=== PATIENT | female | born 1990 | race American Indian/Alaskan Native ===

== ENCOUNTER 2018-12-06 13:12 | Outpatient (CLI) | payer OTHER ==
[2018-12-06] MEDS ORDERED: LACTATED RINGERS 1,000 ML IV ONE (15:19)
[2018-12-06] MEDS ORDERED: TYLENOL PO NR (15:19)
[2018-12-06 15:29] LABS: Bacteria,Urine 2+ /HPF (Negative); Bilirubin,Urine NEG (Negative); Blood,Urine NEG (Negative); Color,Urine Straw (Yellow); Protein,Urine <15 mg/dL mg/dL (Negative); Urobilinogen,Urine < 2.0 mg/dL (<2.0)
[2018-12-06 15:54] VITALS: BP 122/75
== END 2018-12-06 17:25 | disposition home or self-care (01) ==
LOC: TRG 13:12
PROVIDERS: ATTEND Obstetrics & Gynecology
DX: O47.03 False labor before 37 completed weeks of gestation, third trimester (principal); Z3A.34 34 weeks gestation of pregnancy
CPT/HCPCS: 59025; 81001

== ENCOUNTER 2018-12-20 17:38 | Inpatient (IN) | payer OTHER ==
[2018-12-20 19:37] LABS: Bacteria,Urine 2+ /HPF (Negative); Bilirubin,Urine NEG (Negative); Blood,Urine NEG (Negative); Color,Urine Yellow (Yellow); Mucus,Urine FEW /HPF; Protein,Urine <15 mg/dL mg/dL (Negative); Urobilinogen,Urine < 2.0 mg/dL (<2.0)
[2018-12-20] MEDS ORDERED: LACTATED RINGERS 1,000 ML IV ONE (20:17)
[2018-12-20] MEDS ORDERED: BRETHINE SUB-Q SCH (22:00)
--- NOTE | 2018-12-20 22:03 | Event Note ---
Date: 12/20/18 Late entry 2030: DWP round ligament pain and interventions to help alleviate symptoms. Per Dr. Harley, will write for pt to be out of work until f/u OB appt next Tuesday. SVE 1//OOP. DWP plan for US-BPP and CHAPO. Will start IV for LR bolus d/t occasional contractions/irritability. Pt reports feeling occasional mild contractions, not painful. Will continue to monitor at this time.
--- NOTE | 2018-12-20 23:00 | History and Physical Report ---
History of Present Illness Date of examination: 12/20/18 Date of admission: 12/20/2018 Chief complaint: low abdominal pain History of present illness: Menstrual History Regularity: regular Menses every: 28 days Duration: 4 LMP: 04/05/2018 LMP character: normal test type: urine test Date: 05/11/2018 BC at conception: none Planned ? no EDC Calculations LMP: 01/10/2019 EDC Confirmation: 01/10/2019 Gestational Age: 9 6/7 weeks Past History : 1 Term Births: 0 Premature Births: 0 Living Children: 0 Para: 0 Mult. Births: 0 Prev : 0 Prev. attempt? 0 Aborta: 0 Elect. Ab: 0 Spont. Ab: 0 Ectopics: 0 Past Medical History: Reviewed history from 04/14/2012 and no changes required: Negative Past Medical History Past Surgical History: Reviewed history from 04/14/2012 and no changes required: negative Past Medical History Anesthesia Complications: negative Anemia: negative Autoimmune Disorder: negative Bleeding Disorder: negative Blood Transfusions: negative Breast Disease: negative Diabetes: negative Heart Disease: negative Hypertension: negative Hepatitis/Liver Disease: negative Kidney Disease/UTI: negative Neurologic/Epilepsy/Migraines: negative Phlebitis/Varicosities: negative Psychiatric: negative Pulmonary Disease/Asthma: negative Thyroid Disease: negative Hospitalizations: negative Surgery (Non-admissions dean): negative Abnormal PAP: LGSIL 2011 Social Hx: Patient is single Smoking History: Patient has never smoked. Infection History Personal hx. of genital herpes: no Partner hx. of genital herpes: no Rash, Viral, or Febrile illness since last LMP? no Varicella/Chicken Pox Status: Previous Disease Genetic History Congenital Heart Defect: Mom: no Dad: no Supriya Disease: Mom: no Dad: no Thalassemia Mom: no Dad: no Neural Tube Defect Mom: no Dad: no Down's Syndrome Mom: no Dad: no Raul-Sachs Mom: no Dad: no Sickle Cell Disease/Trait Mom: no Dad: no Hemophilia Mom: no Dad: no Muscular Dystrophy Mom: no Dad: no Cystic Fibrosis Mom: no Dad: no [place] Chorea Mom: no Dad: no Mental Retardation Mom: no Dad: no Fragile X Mom: no Dad: no Other Genetic/Chromosomal Disorder Mom: no Dad: no Child w/other defect Mom: no Dad: no Enviromental Exposures Xray Exposure: no Medication, drug, or alcohol use since LMP: no Chemical/Other Exposure: no Exposure to Cat Liter: no Hx of Parvovirus (Fifth Disease): no Occupational Exposure to Children: none Active Medications (reviewed today): IBUPROFEN 800 MG ORAL TABLET (IBUPROFEN) 1 po TID (PRN) Current Allergies (reviewed today): No known allergies Past History Past Medical History: other (see HPI) Past Surgical History: other (see HPI) 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) Family/Genetic History: other (see HPI) Social history: other (see HPI) - Obstetrical History Expected Date of Delivery: 01/17/19 Actual Gestation: 36 Week(s) 1 Day(s) : 1 Para: 0 Medications and Allergies Allergies Allergy/AdvReac Type Severity Reaction Status Date / Time No Known Allergies Allergy Verified 12/20/18 18:00 Home Medications Medication Instructions Recorded Confirmed Last Taken Type Pnv,Calcium 72/Iron/Folic Acid 1 each PO DAILY 12/06/18 12/20/18 12/20/18 09:00 History [ Plus Tablet] 1 Active Meds: Active Medications Terbutaline Sulfate (Brethine) 0.25 mg SUB-Q Q20MIN QUANG Stop: 12/22/18 22:01 Review of Systems All systems: negative Genitourinary: contractions (muil, occasional, "spacing out"), other (low supra pubic abdominal pain, only with movement or walking) - Vital Signs Vital signs: Vital Signs Temp Resp 98.0 F 18 12/20/18 18:02 12/20/18 18:02 Temp Pulse Resp BP Pulse Ox 98.0 F 77 18 112/56 12/20/18 18:02 12/20/18 22:02 12/20/18 18:02 12/20/18 22:02 - Physical Exam Breasts: Cardiovascular: Regular rate, Normal S1, Normal S2 Lungs: Positive: Clear to auscultation, Normal air movement Abdomen: Positive: normal appearance, soft, normal bowel sounds. Negative: distention, tenderness Genitourinary (Female): Positive: normal external genitalia, normal perenium Vulva: both: normal Vagina: Positive: normal moisture. Negative: discharge Cervix: Negative: lesion, discharge Uterus: Positive: normal size, normal contour Adnexa: both: normal Anus/Rectum: Positive: normal perianal skin, heme negative. Negative: rectal mass, hemorrhoids Extremities: Deep Tendon Reflex Grade: Normal +2 - Obstetrical FHR: auscultation normal (variable decelerations x2, appears to be unrelated to contractions) Cervical Dilatation: 1 Cervical Effacement Percentage: 50 station: -3 Uterine Contraction Pattern: Irregular (occasional with irritability) Uterine Tone Measurement Phase: Contraction Uterine Contraction Intensity: Mild Results All other labs normal. Assessment and Plan Patient presents for low abdominal pain with movement and walking x3 weeks. Reports pain as sharp pulling. She reports she has tried maternity belt with no relief. Variable decels x2 noted on FHT tracing. US BPP and CHAPO shows CHAPO 3.1, BPP 6/8 2 off for fluids. Consult with Dr. Harley, will observe and IV hydrate, repeat US at 0700. DWP POC, she agrees. Questions encouraged and addressed.
[2018-12-21] MEDS ORDERED: LACTATED RINGERS 1,000 ML ONE (01:28)
[2018-12-21] MEDS ORDERED: LACTATED RINGERS 1,000 ML IV SCH (05:00)
--- NOTE | 2018-12-21 05:50 | Ultrasound Report ---
US OB limited, US OB BPP wo non-stress, US OB limited INDICATION / CLINICAL INFORMATION: wellbeing. Single viable intrauterine gestation in the cephalic presentation. heart rate is 162 bpm CHAPO 3.1 Biophysical profile 11/11 based on decreased amniotic fluid volume. IMPRESSION: 1. Bilateral fetus in cephalic presentation. 2. Decreased CHAPO. Signer Name: Jacques Erazo MD Signed: 12/21/2018 5:45 AM Workstation Name: [email or web address]
--- NOTE | 2018-12-21 05:50 | Ultrasound Report ---
US OB limited, US OB BPP wo non-stress, US OB limited INDICATION / CLINICAL INFORMATION: wellbeing. Single viable intrauterine gestation in the cephalic presentation. heart rate is 162 bpm CHAPO 3.1 Biophysical profile 11/11 based on decreased amniotic fluid volume. IMPRESSION: 1. Bilateral fetus in cephalic presentation. 2. Decreased CHAPO. Signer Name: Jacques Erazo MD Signed: 12/21/2018 5:45 AM Workstation Name: [email or web address]
--- NOTE | 2018-12-21 10:36 | Ultrasound Report ---
ULTRASOUND BIOPHYSICAL PROFILE ULTRASOUND OB LIMITED INDICATION: well being TECHNIQUE: Transabdominal ultrasound imaging. COMPARISON: 12/20/2018 FINDINGS: breathing movement = 2 Gross body movement = 2 tone = 2 Qualitative amniotic fluid volume = 0 Total biophysical score = 6/8 Amniotic fluid index is 1.9 cm. Presentation is cephalic. heart rate is 152 beats per minute. IMPRESSION: biophysical profile equals 6/8. Oligohydramnios. CHAPO = 1.9 cm. Signer Name: Blaine Cohen Jr, MD Signed: 12/21/2018 10:32 AM Workstation Name: [id number]
[2018-12-21] MEDS ORDERED: CELESTONE SOLUSPAN IM SCH (11:00)
--- NOTE | 2018-12-21 11:19 | Progress Note ---
Assessment and Plan Consulted with Will move forward with IOL ROM undetermined length of time. Repeat CHAPO 1. Orders in EMR Spoke with pt answered all questions Agrees with POC Subjective - Subjective Date of service: 12/21/18 (repeat CHAPO 1 Will admit and deliver) Principal diagnosis: IUP @ 36w1d with oligo vs ROM undertermined time Interval history: HBsAg Screen Negative Negative *1 RPR Non Reactive Non Reactive *2 Rubella Antibodies, IgG 3.73 index Immune >0.99 *3 Non-immune <0.90 Equivocal 0.90 - 0.99 Immune >0.99 ABO Grouping B *4 Rh Factor Positive *5 Please note: Prior records for this patient's ABO / Rh type are not available for additional verification. Antibody Screen Negative Negative *6 WBC 10.1 x10E3/uL 3.4-10.8 *7 RBC 4.11 x10E6/uL 3.77-5.28 *8 Hemoglobin 11.2 g/dL 11.1-15.9 *9 Hematocrit 34.9 % 34.0-46.6 *10 MCV 85 fL 79-97 *11 MCH 27.3 pg 26.6-33.0 *12 MCHC 32.1 g/dL 31.5-35.7 *13 RDW 12.9 % 12.3-15.4 *14 Platelets 325 x10E3/uL 150-379 *15 Neutrophils 71 % Not Estab. *16 Lymphs 21 % Not Estab. *17 Monocytes 7 % Not Estab. *18 Eos 1 % Not Estab. *19 Basos 0 % Not Estab. *20 ! Immature Cells <No Reported Value> *21 Neutrophils (Absolute) [H] 7.1 x10E3/uL 1.4-7.0 *22 Lymphs (Absolute) 2.1 x10E3/uL 0.7-3.1 *23 Monocytes(Absolute) 0.7 x10E3/uL 0.1-0.9 *24 Eos (Absolute) 0.1 x10E3/uL 0.0-0.4 *25 Baso (Absolute) 0.0 x10E3/uL 0.0-0.2 *26 ! Immature Granulocytes 0 % Not Estab. *27 ! Immature Grans (Abs) 0.0 x10E3/uL 0.0-0.1 *28 ! NRBC <No Reported Value> *29 Hematology Comments: <No Reported Value> *30 Tests: (2) Panel 741136 ([id number]) HIV Screen 4th Generation wRfx Non Reactive Non Reactive *31 Tests: (3) HCV Ab w/Rflx to Verification (924180) ! HCV Ab <0.1 s/co ratio 0.0-0.9 *32 Tests: (4) Comment: (854105) ! Comment: SPRCS *33 Non reactive HCV antibody screen is consistent with no HCV infection, unless recent infection is suspected or other evidence exists to indicate HCV infection. Tests: (5) Urine Culture, Routine ([id number]) Urine Culture, Routine Final report *34 Tests: (6) Result ([id number]) ! Result 1 No growth *35 Patient reports: movement normal Objective - Vital Signs Vital Signs: Vital Signs - 12hr 12/21/18 12/21/18 12/21/18 00:42 01:38 10:35 Pulse Rate 76 83 96 H Blood Pressure 117/68 115/67 114/69 - Exam Breasts: deferred Cardiovascular: Regular rate Lungs: Normal air movement Abdomen: Present: normal appearance, soft. Absent: distention, tenderness Uterus: Present: normal FHR: auscultation normal, category 1 Uterine Contraction Monitor Mode: External Cervical Dilatation: 1.5 Cervical Effacement Percentage: 70 station: -2 Uterine Contraction Pattern: Irregular Uterine Tone Measurement Phase: Resting Uterine Contraction Intensity: Mild - Labs Labs: Laboratory Results - last 24 hr 12/20/18 18:00 Urine Color Yellow Urine Turbidity Slightly-cloudy Urine pH 7.0 Ur Specific [place] 1.018 Urine Protein <15 mg/dl Urine Glucose (UA) Neg Urine Ketones Neg Urine Blood Neg Urine Nitrite Neg Urine Bilirubin Neg Urine Urobilinogen < 2.0 Ur Leukocyte Esterase Neg Urine WBC (Auto) 2.0 Urine RBC (Auto) 2.0 U Epithel Cells (Auto) 5.0 Urine Bacteria (Auto) 2+ Urine Mucus Few
[2018-12-21] MEDS ORDERED: XYLOCAINE 2% INFILTRATI NR (11:30)
[2018-12-21] MEDS ORDERED: ZOFRAN IV PRN (11:30)
[2018-12-21] MEDS ORDERED: SUBLIMAZE IV PRN (11:30)
[2018-12-21] MEDS ORDERED: BRETHINE SUB-Q PRN (12:00)
[2018-12-21] MEDS ORDERED: AMPICILLIN/NS 2 GM/100 ML 2 GM/100 ML BAG IV ONE (12:00)
[2018-12-21] MEDS ORDERED: PITOCin/NS 20 UNIT/1000ML DRIP 20 UNITS/1,000 ML BAG IV SCH (12:00)
[2018-12-21] MEDS ORDERED: PITOCin/NS 30 UNIT/500ML 30 UNITS/500 ML BAG IV SCH (12:00)
[2018-12-21] MEDS ORDERED: MINERAL OIL PO PRN (12:00)
[2018-12-21 12:50] LABS: Basophils % (Auto) 0.1 % (0.0-1.8); Eosinophils % (Auto) 0.3 % (0.0-4.3); Hematocrit 31.7 % (30.3-42.9); Hemoglobin 10.4 gm/dl (10.1-14.3); Lymphocytes # (Auto) 1.5 K/mm3 (1.2-5.4); Lymphocytes % (Auto) 14.4 % (13.4-35.0); Mean Corpuscular HGB Conc 33 % (30-34); Mean Corpuscular Volume 84 fl (79-97); Monocytes # (Auto) 0.4 K/mm3 (0.0-0.8); Monocytes % (Auto) 4.2 % (0.0-7.3); Platelet Count 283 K/mm3 (140-440); Red Blood Count 3.79 M/mm3 (3.65-5.03); Red Cell Distribution Width 13.6 % (13.2-15.2)
[2018-12-21] MEDS ORDERED: AMPICILLIN/NS 1 GM/50 ML 1 GM/50 ML BAG IV SCH ×2 (16:00→22:00)
[2018-12-21] MEDS ORDERED: CERVIDIL VG ONE (19:00)
--- NOTE | 2018-12-21 19:02 | Progress Note ---
Assessment and Plan Stop pitocin Hold Ampicillin until 2200 Diet and PM care. Will place cervidil @ 1900. POC discussed with pt all questions addressed. Subjective - Subjective Date of service: 12/21/18 (pitocin stopped) Principal diagnosis: IUP @ 36w1d with oligo vs ROM undertermined time Interval history: HBsAg Screen Negative Negative *1 RPR Non Reactive Non Reactive *2 Rubella Antibodies, IgG 3.73 index Immune >0.99 *3 Non-immune <0.90 Equivocal 0.90 - 0.99 Immune >0.99 ABO Grouping B *4 Rh Factor Positive *5 Please note: Prior records for this patient's ABO / Rh type are not available for additional verification. Antibody Screen Negative Negative *6 WBC 10.1 x10E3/uL 3.4-10.8 *7 RBC 4.11 x10E6/uL 3.77-5.28 *8 Hemoglobin 11.2 g/dL 11.1-15.9 *9 Hematocrit 34.9 % 34.0-46.6 *10 MCV 85 fL 79-97 *11 MCH 27.3 pg 26.6-33.0 *12 MCHC 32.1 g/dL 31.5-35.7 *13 RDW 12.9 % 12.3-15.4 *14 Platelets 325 x10E3/uL 150-379 *15 Neutrophils 71 % Not Estab. *16 Lymphs 21 % Not Estab. *17 Monocytes 7 % Not Estab. *18 Eos 1 % Not Estab. *19 Basos 0 % Not Estab. *20 ! Immature Cells <No Reported Value> *21 Neutrophils (Absolute) [H] 7.1 x10E3/uL 1.4-7.0 *22 Lymphs (Absolute) 2.1 x10E3/uL 0.7-3.1 *23 Monocytes(Absolute) 0.7 x10E3/uL 0.1-0.9 *24 Eos (Absolute) 0.1 x10E3/uL 0.0-0.4 *25 Baso (Absolute) 0.0 x10E3/uL 0.0-0.2 *26 ! Immature Granulocytes 0 % Not Estab. *27 ! Immature Grans (Abs) 0.0 x10E3/uL 0.0-0.1 *28 ! NRBC <No Reported Value> *29 Hematology Comments: <No Reported Value> *30 Tests: (2) Panel 862233 ([id number]) HIV Screen 4th Generation wRfx Non Reactive Non Reactive *31 Tests: (3) HCV Ab w/Rflx to Verification ([id number]) ! HCV Ab <0.1 s/co ratio 0.0-0.9 *32 Tests: (4) Comment: ([id number]) ! Comment: SPRCS *33 Non reactive HCV antibody screen is consistent with no HCV infection, unless recent infection is suspected or other evidence exists to indicate HCV infection. Tests: (5) Urine Culture, Routine ([id number]) Urine Culture, Routine Final report *34 Tests: (6) Result ([id number]) ! Result 1 No growth *35 Patient reports: movement normal Objective - Vital Signs Vital Signs: Vital Signs - 12hr 12/21/18 12/21/18 12/21/18 10:35 15:29 16:00 Temperature 98.1 F Pulse Rate 96 H 107 H Respiratory 16 Rate Blood Pressure 114/69 119/80 12/21/18 16:35 Temperature Pulse Rate 99 H Respiratory Rate Blood Pressure 129/77 - Exam Breasts: deferred Cardiovascular: Regular rate Lungs: Normal air movement Abdomen: Present: normal appearance, soft. Absent: distention, tenderness Uterus: Present: normal FHR: auscultation normal Uterine Contraction Monitor Mode: External Cervical Dilatation: 1 Cervical Effacement Percentage: 50 station: -2 Uterine Contraction Pattern: Irregular Uterine Tone Measurement Phase: Resting Uterine Contraction Intensity: Mild Extremities: normal Deep Tendon Reflex Grade: Normal +2 - Labs Labs: Abnormal Labs 12/21/18 12:14 MCH 27 L Seg Neutrophils % 81.0 H Seg Neutrophils # 8.2 H Laboratory Results - last 24 hr 12/20/18 12/21/18 12/21/18 18:00 12:14 12:23 WBC 10.2 RBC 3.79 Hgb 10.4 Hct 31.7 MCV 84 MCH 27 L MCHC 33 RDW 13.6 Plt Count 283 Lymph % (Auto) 14.4 [place] % (Auto) 4.2 Eos % (Auto) 0.3 Baso % (Auto) 0.1 Lymph # 1.5 [place] # 0.4 Eos # 0.0 Baso # 0.0 Seg Neutrophils % 81.0 H Seg Neutrophils # 8.2 H Urine Color Yellow Urine Turbidity Slightly-cloudy Urine pH 7.0 Ur Specific [place] 1.018 Urine Protein <15 mg/dl Urine Glucose (UA) Neg Urine Ketones Neg Urine Blood Neg Urine Nitrite Neg Urine Bilirubin Neg Urine Urobilinogen < 2.0 Ur Leukocyte Esterase Neg Urine WBC (Auto) 2.0 Urine RBC (Auto) 2.0 U Epithel Cells (Auto) 5.0 Urine Bacteria (Auto) 2+ Urine Mucus Few Blood Type B POSITIVE Antibody Screen Negative
[2018-12-21] MEDS ORDERED: AMBIEN PO PRN (20:55)
[2018-12-21] MEDS: AMPICILLIN/NS 1 GM/50 ML 1 GM/50 ML BAG IV SCH (22:15)
--- NOTE | 2018-12-22 08:57 | Progress Note ---
Assessment and Plan Pt reports resting well last night, comfortable at current. She denies any strong regular contractions. Cervidil removed, SVE essentially unchanged from prior exam, DWP plan to repeat cervidil. She agrees to POC. Cat 1 tracing at this time. VSSAF. Pt may shower and eat breakfast. POC reviewed with Dr. Yost who agrees. Subjective - Subjective Date of service: 12/22/18 Principal diagnosis: IUP @ 36w2d with oligo vs ROM undertermined time Interval history: Menstrual History Regularity: regular Menses every: 28 days Duration: 4 LMP: 04/05/2018 LMP character: normal test type: urine test Date: 05/11/2018 BC at conception: none Planned ? no EDC Calculations LMP: 01/10/2019 EDC Confirmation: 01/10/2019 Gestational Age: 9 6/7 weeks Past History : 1 Term Births: 0 Premature Births: 0 Living Children: 0 Para: 0 Mult. Births: 0 Prev : 0 Prev. attempt? 0 Aborta: 0 Elect. Ab: 0 Spont. Ab: 0 Ectopics: 0 Past Medical History: Reviewed history from 04/14/2012 and no changes required: Negative Past Medical History Past Surgical History: Reviewed history from 04/14/2012 and no changes required: negative Past Medical History Anesthesia Complications: negative Anemia: negative Autoimmune Disorder: negative Bleeding Disorder: negative Blood Transfusions: negative Breast Disease: negative Diabetes: negative Heart Disease: negative Hypertension: negative Hepatitis/Liver Disease: negative Kidney Disease/UTI: negative Neurologic/Epilepsy/Migraines: negative Phlebitis/Varicosities: negative Psychiatric: negative Pulmonary Disease/Asthma: negative Thyroid Disease: negative Hospitalizations: negative 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 Infection History Personal hx. of genital herpes: no Partner hx. of genital herpes: no Rash, Viral, or Febrile illness since last LMP? no Varicella/Chicken Pox Status: Previous Disease Genetic History Congenital Heart Defect: Mom: no Dad: no Supriya Disease: Mom: no Dad: no Thalassemia Mom: no Dad: no Neural Tube Defect Mom: no Dad: no Down's Syndrome Mom: no Dad: no Raul-Sachs Mom: no Dad: no Sickle Cell Disease/Trait Mom: no Dad: no Hemophilia Mom: no Dad: no Muscular Dystrophy Mom: no Dad: no Cystic Fibrosis Mom: no Dad: no [place] Chorea Mom: no Dad: no Mental Retardation Mom: no Dad: no Fragile X Mom: no Dad: no Other Genetic/Chromosomal Disorder Mom: no Dad: no Child w/other defect Mom: no Dad: no Enviromental Exposures Xray Exposure: no Medication, drug, or alcohol use since LMP: no Chemical/Other Exposure: no Exposure to Cat Liter: no Hx of Parvovirus (Fifth Disease): no Occupational Exposure to Children: none Active Medications (reviewed today): IBUPROFEN 800 MG ORAL TABLET (IBUPROFEN) 1 po TID (PRN) Current Allergies (reviewed today): No known allergies Patient reports: movement normal, contractions ("irregular, crampy"), no new complaints, no loss of fluid (pt denies LOF), no vaginal bleeding Objective - Vital Signs Vital Signs: Vital Signs - 12hr 12/21/18 12/22/18 12/22/18 21:42 06:11 07:32 Temperature 98.7 F Pulse Rate 100 H 90 Respiratory 20 Rate Blood Pressure 107/62 114/63 12/22/18 07:34 Temperature Pulse Rate 81 Respiratory Rate Blood Pressure 109/66 - Exam Cardiovascular: Regular rate, Normal S1, Normal S2 Lungs: Clear to auscultation, Normal air movement Abdomen: Present: normal appearance, soft, normal bowel sounds. Absent: distention, tenderness Vulva: both: normal Uterus: Present: normal FHR: auscultation normal Uterine Contraction Monitor Mode: External Cervical Dilatation: 1.5 Cervical Effacement Percentage: 60 station: -4 Uterine Contraction Pattern: Irregular Uterine Tone Measurement Phase: Resting Extremities: normal Deep Tendon Reflex Grade: Normal +2 - Labs Labs: Abnormal Labs 12/21/18 12:14 MCH 27 L Seg Neutrophils % 81.0 H Seg Neutrophils # 8.2 H Laboratory Results - last 24 hr 12/21/18 12/21/18 12:14 12:23 WBC 10.2 RBC 3.79 Hgb 10.4 Hct 31.7 MCV 84 MCH 27 L MCHC 33 RDW 13.6 Plt Count 283 Lymph % (Auto) 14.4 [place] % (Auto) 4.2 Eos % (Auto) 0.3 Baso % (Auto) 0.1 Lymph # 1.5 [place] # 0.4 Eos # 0.0 Baso # 0.0 Seg Neutrophils % 81.0 H Seg Neutrophils # 8.2 H Blood Type B POSITIVE Antibody Screen Negative
[2018-12-22] MEDS ORDERED: CERVIDIL VG ONE (11:30)
[2018-12-22] MEDS: AMPICILLIN/NS 1 GM/50 ML 1 GM/50 ML BAG IV SCH ×3 (11:57→22:31)
[2018-12-22] MEDS: LACTATED RINGERS 1,000 ML IV SCH (21:14)
--- NOTE | 2018-12-22 21:58 | Progress Note ---
Assessment and Plan patient w/o complaint; denies contractions, leaking, bleeding. +fm. Cervidil removed. cervix unchanged. Right gluteal ulcerated lesion noted. She denies HSV infection. States she shaved prior to presenting to the hospital and cut herself. Explained risks for transmission to baby and fatal/lethal complications that can occur with active HSV lesion. Discussed guidelines to proceed with c/s delivery for active HSV outbreak to prevent transmission to baby. Risks associated with c/s discussed. Lesion cultured and HSV serology ordered. On reviewing her office chart HSV serology has been negative [id number], not performed 2017. She states she sure she cut that area while shaving and desires to proceed with IOL. She voiced understanding. - Patient Problems (1) 36 weeks gestation of Current Visit: Yes Status: Acute (2) Oligohydramnios in [place] in third trimester Current Visit: Yes Status: Acute (3) Lesion of vulva Current Visit: Yes Status: Acute Subjective - Subjective Date of service: 12/22/18 Principal diagnosis: IUP @ 36w2d with oligo vs ROM undertermined time Patient reports: movement normal, contractions ("irregular, crampy"), no new complaints, no loss of fluid (pt denies LOF), no vaginal bleeding Objective - Vital Signs Vital Signs: Vital Signs - 12hr 12/22/18 12/22/18 12/22/18 10:40 10:41 17:13 Temperature 98.7 F 98.7 F Pulse Rate 85 Respiratory 24 20 Rate Blood Pressure 113/68 Blood Pressure [Left] 12/22/18 12/22/18 12/22/18 17:15 19:48 19:57 Temperature 98.7 F Pulse Rate 87 87 96 H Respiratory 18 Rate Blood Pressure 117/66 117/71 Blood Pressure 177/71 [Left] 12/22/18 21:05 Temperature Pulse Rate 90 Respiratory Rate Blood Pressure 131/80 Blood Pressure [Left] - Exam Breasts: deferred Cardiovascular: Regular rate Lungs: Normal air movement Vulva: right: ulceration (gluteal) Uterus: Present: fundal height above umbilicus. Absent: tenderness FHR: category 1 Uterine Contraction Monitor Mode: External Cervical Dilatation: 1.5 Cervical Effacement Percentage: 30 station: -3 Uterine Contraction Pattern: Absent Extremities: edema (1+) - Labs Labs: Abnormal Labs 12/21/18 12:14 MCH 27 L Seg Neutrophils % 81.0 H Seg Neutrophils # 8.2 H Laboratory Results - last 24 hr 12/21/18 12:14 RPR Nonreactive
[2018-12-22] MEDS ORDERED: PITOCin/NS 30 UNIT/500ML 30 UNITS/500 ML BAG IV SCH (23:00)
[2018-12-23] MEDS: AMPICILLIN/NS 1 GM/50 ML 1 GM/50 ML BAG IV SCH (03:02)
[2018-12-23] MEDS: LACTATED RINGERS 1,000 ML IV SCH (05:21)
[2018-12-23] MEDS ORDERED: REGLAN IV ONE (09:42)
[2018-12-23] MEDS ORDERED: PEPCID IV ONE (09:42)
[2018-12-23] MEDS ORDERED: BICITRA PO ONE (09:42)
[2018-12-23] MEDS ORDERED: ANCEF/STERILE WATER 2 GM/20 ML 2 GM/20 ML SYRINGE IV NR (10:00)
[2018-12-23] MEDS ORDERED: LACTATED RINGERS 1,000 ML IV SCH (10:00)
[2018-12-23] MEDS ORDERED: PITOCin/NS 20 UNIT/1000ML DRIP 20 UNITS/1,000 ML BAG IV SCH ×2 (10:00→15:49)
--- NOTE | 2018-12-23 10:25 | Progress Note ---
Assessment and Plan - Patient Problems (1) 36 weeks gestation of Current Visit: Yes Status: Acute (2) Oligohydramnios in [place] in third trimester Current Visit: Yes Status: Acute (3) Lesion of vulva Current Visit: Yes Status: Acute Plan to address problem: Lesion still present, serology not drawn that was order stat last pm. Limitations with making definitive diagnosis for HSV explained especially w/o culture or serology. Again discussed risks associated with possible active HSV lesions and transmission to baby vs c/s with risks for bleeding, infection, injury to bladder/bowel. She was also informed she may require repeat c/s with subsequent pregnancies. Questions were encouraged and answered, she voiced understanding and desires to proceed with c/s. Subjective - Subjective Date of service: 12/23/18 Principal diagnosis: IUP @ 36w3d with oligo vs ROM undertermined time, vulvar lesion Interval history: No complaints. Patient reports: movement normal, contractions ("irregular, crampy"), no new complaints, no loss of fluid (pt denies LOF), no vaginal bleeding Objective - Vital Signs Vital Signs: Vital Signs - 12hr 12/22/18 12/22/18 12/22/18 22:19 22:24 22:29 Temperature Pulse Rate 95 H 103 H 101 H Respiratory Rate Blood Pressure Blood Pressure [Left] O2 Sat by Pulse 99 99 99 Oximetry 12/22/18 12/22/18 12/22/18 22:34 22:39 22:45 Temperature Pulse Rate 100 H 95 H 107 H Respiratory Rate Blood Pressure Blood Pressure [Left] O2 Sat by Pulse 97 98 99 Oximetry 12/22/18 12/22/18 12/22/18 22:50 22:55 23:00 Temperature Pulse Rate 109 H 101 H 107 H Respiratory Rate Blood Pressure Blood Pressure [Left] O2 Sat by Pulse 98 99 98 Oximetry 12/22/18 12/22/18 12/22/18 23:05 23:10 23:15 Temperature Pulse Rate 104 H 98 H 96 H Respiratory Rate Blood Pressure Blood Pressure [Left] O2 Sat by Pulse 98 99 99 Oximetry 12/22/18 12/22/18 12/22/18 23:20 23:25 23:30 Temperature Pulse Rate 91 H 96 H 100 H Respiratory Rate Blood Pressure Blood Pressure [Left] O2 Sat by Pulse 99 99 99 Oximetry 12/22/18 12/22/1812/22/19 23:32 23:35 23:40 Temperature Pulse Rate 88 98 H 100 H Respiratory Rate Blood Pressure 102/56 Blood Pressure [Left] O2 Sat by Pulse 99 99 Oximetry 12/22/18 12/22/18 12/22/18 23:45 23:50 23:55 Temperature Pulse Rate 99 H 94 H 96 H Respiratory Rate Blood Pressure Blood Pressure [Left] O2 Sat by Pulse 99 97 97 Oximetry 12/23/18 12/23/18 12/23/18 00:00 00:05 00:10 Temperature Pulse Rate 99 H 96 H 91 H Respiratory Rate Blood Pressure Blood Pressure [Left] O2 Sat by Pulse 98 98 98 Oximetry 12/23/18 12/23/18 12/23/18 00:15 00:20 00:25 Temperature Pulse Rate 94 H 93 H 99 H Respiratory Rate Blood Pressure Blood Pressure [Left] O2 Sat by Pulse 100 98 98 Oximetry 12/23/18 12/23/18 12/23/18 00:30 00:32 00:35 Temperature Pulse Rate 95 H 90 89 Respiratory Rate Blood Pressure 93/51 Blood Pressure [Left] O2 Sat by Pulse 98 98 Oximetry 12/23/18 12/23/18 12/23/18 00:40 00:45 00:50 Temperature Pulse Rate 89 71 89 Respiratory Rate Blood Pressure Blood Pressure [Left] O2 Sat by Pulse 98 100 98 Oximetry 12/23/18 12/23/18 12/23/18 00:55 01:00 01:05 Temperature Pulse Rate 87 88 88 Respiratory Rate Blood Pressure Blood Pressure [Left] O2 Sat by Pulse 99 98 97 Oximetry 12/23/18 12/23/18 12/23/18 01:10 01:19 01:21 Temperature 98.4 F Pulse Rate 94 H 83 77 Respiratory 18 Rate Blood Pressure Blood Pressure 93/51 [Left] O2 Sat by Pulse 99 99 98 Oximetry 12/23/18 12/23/18 12/23/18 01:24 01:29 01:32 Temperature Pulse Rate 80 82 80 Respiratory Rate Blood Pressure 119/71 Blood Pressure [Left] O2 Sat by Pulse 99 98 Oximetry 12/23/18 12/23/18 12/23/18 01:34 01:39 01:44 Temperature Pulse Rate 84 85 89 Respiratory Rate Blood Pressure Blood Pressure [Left] O2 Sat by Pulse 97 97 97 Oximetry 12/23/18 12/23/18 12/23/18 01:49 01:54 01:59 Temperature Pulse Rate 89 85 84 Respiratory Rate Blood Pressure Blood Pressure [Left] O2 Sat by Pulse 97 97 96 Oximetry 12/23/18 12/23/18 12/23/18 02:04 02:09 02:14 Temperature Pulse Rate 87 88 88 Respiratory Rate Blood Pressure Blood Pressure [Left] O2 Sat by Pulse 97 97 97 Oximetry 12/23/18 12/23/18 12/23/18 02:19 02:24 02:30 Temperature Pulse Rate 86 82 81 Respiratory Rate Blood Pressure Blood Pressure [Left] O2 Sat by Pulse 97 97 96 Oximetry 12/23/18 12/23/18 12/23/18 02:33 02:34 02:40 Temperature Pulse Rate 89 75 87 Respiratory Rate Blood Pressure 124/71 Blood Pressure [Left] O2 Sat by Pulse 98 97 Oximetry 12/23/18 12/23/18 12/23/18 02:45 02:50 02:55 Temperature Pulse Rate 84 84 83 Respiratory Rate Blood Pressure Blood Pressure [Left] O2 Sat by Pulse 97 97 96 Oximetry 12/23/18 12/23/18 12/23/18 03:00 03:05 03:10 Temperature Pulse Rate 84 79 82 Respiratory Rate Blood Pressure Blood Pressure [Left] O2 Sat by Pulse 97 96 96 Oximetry 12/23/18 12/23/18 12/23/18 03:12 03:15 03:18 Temperature Pulse Rate 97 H 97 H 86 Respiratory Rate Blood Pressure Blood Pressure [Left] O2 Sat by Pulse 94 98 94 Oximetry 12/23/18 12/23/18 12/23/18 03:20 03:25 03:30 Temperature Pulse Rate 82 86 79 Respiratory Rate Blood Pressure Blood Pressure [Left] O2 Sat by Pulse 95 97 97 Oximetry 12/23/18 12/23/18 12/23/18 03:32 03:35 03:40 Temperature Pulse Rate 85 83 77 Respiratory Rate Blood Pressure 109/63 Blood Pressure [Left] O2 Sat by Pulse 97 93 Oximetry 12/23/18 12/23/18 12/23/18 03:45 03:50 03:55 Temperature Pulse Rate 82 81 75 Respiratory Rate Blood Pressure Blood Pressure [Left] O2 Sat by Pulse 96 97 97 Oximetry 12/23/18 12/23/18 12/23/18 04:00 04:05 04:10 Temperature Pulse Rate 86 80 84 Respiratory Rate Blood Pressure Blood Pressure [Left] O2 Sat by Pulse 97 97 97 Oximetry 12/23/18 12/23/18 12/23/18 04:15 04:20 04:25 Temperature Pulse Rate 74 77 84 Respiratory Rate Blood Pressure Blood Pressure [Left] O2 Sat by Pulse 98 98 98 Oximetry 12/23/18 12/23/18 12/23/18 04:30 04:32 04:35 Temperature Pulse Rate 79 75 76 Respiratory Rate Blood Pressure 119/72 Blood Pressure [Left] O2 Sat by Pulse 98 96 Oximetry 12/23/18 12/23/18 12/23/18 04:40 04:45 04:50 Temperature Pulse Rate 69 72 78 Respiratory Rate Blood Pressure Blood Pressure [Left] O2 Sat by Pulse 97 96 97 Oximetry 12/23/18 12/23/18 12/23/18 04:55 05:00 05:05 Temperature Pulse Rate 78 79 77 Respiratory Rate Blood Pressure Blood Pressure [Left] O2 Sat by Pulse 97 98 97 Oximetry 12/23/18 12/23/18 12/23/18 05:10 05:15 05:20 Temperature Pulse Rate 77 78 77 Respiratory Rate Blood Pressure Blood Pressure [Left] O2 Sat by Pulse 98 97 99 Oximetry 12/23/18 12/23/18 12/23/18 05:25 05:30 05:33 Temperature Pulse Rate 78 84 83 Respiratory Rate Blood Pressure 110/69 Blood Pressure [Left] O2 Sat by Pulse 99 99 Oximetry 12/23/18 12/23/18/ 05:35 05:40 05:45 Temperature Pulse Rate 87 78 82 Respiratory Rate Blood Pressure Blood Pressure [Left] O2 Sat by Pulse 100 99 99 Oximetry 12/23/18 12/23/18 12/23/18 05:50 06:03 06:08 Temperature Pulse Rate 79 84 73 Respiratory Rate Blood Pressure Blood Pressure [Left] O2 Sat by Pulse 99 99 98 Oximetry 12/23/18 12/23/18/ 06:13 06:18 06:23 Temperature Pulse Rate 76 78 73 Respiratory Rate Blood Pressure Blood Pressure [Left] O2 Sat by Pulse 99 99 99 Oximetry 12/23/18 12/23/18/ 06:28 06:32 06:33 Temperature Pulse Rate 79 82 78 Respiratory Rate Blood Pressure 112/77 Blood Pressure [Left] O2 Sat by Pulse 98 99 Oximetry 12/23/18 12/23/18 12/23/18 06:38 06:43 06:48 Temperature Pulse Rate 86 81 81 Respiratory Rate Blood Pressure Blood Pressure [Left] O2 Sat by Pulse 99 97 97 Oximetry 12/23/18 12/23/18 12/23/18 06:53 06:58 07:03 Temperature Pulse Rate 83 74 75 Respiratory Rate Blood Pressure Blood Pressure [Left] O2 Sat by Pulse 97 98 98 Oximetry 12/23/18 12/23/18 12/23/18 07:08 07:13 07:18 Temperature Pulse Rate 76 83 79 Respiratory Rate Blood Pressure Blood Pressure [Left] O2 Sat by Pulse 98 98 98 Oximetry 12/23/18 12/23/18 12/23/18 07:23 07:28 07:32 Temperature Pulse Rate 85 91 H 87 Respiratory Rate Blood Pressure 115/76 Blood Pressure [Left] O2 Sat by Pulse 94 98 Oximetry 12/23/18 12/23/18 12/23/18 07:33 07:38 07:43 Temperature Pulse Rate 89 83 85 Respiratory Rate Blood Pressure Blood Pressure [Left] O2 Sat by Pulse 97 99 100 Oximetry 12/23/18 12/23/18 12/23/18 07:48 07:53 07:58 Temperature Pulse Rate 85 88 95 H Respiratory Rate Blood Pressure Blood Pressure [Left] O2 Sat by Pulse 99 99 100 Oximetry 12/23/18 12/23/18 12/23/18 08:03 08:08 08:13 Temperature Pulse Rate 90 90 87 Respiratory Rate Blood Pressure Blood Pressure [Left] O2 Sat by Pulse 99 98 99 Oximetry 12/23/18 12/23/18 12/23/18 08:18 08:23 08:28 Temperature Pulse Rate 86 92 H 87 Respiratory Rate Blood Pressure Blood Pressure [Left] O2 Sat by Pulse 99 99 99 Oximetry 12/23/18 12/23/18 12/23/18 08:33 08:38 08:43 Temperature Pulse Rate 94 H 78 91 H Respiratory Rate Blood Pressure 116/76 Blood Pressure [Left] O2 Sat by Pulse 99 99 99 Oximetry 12/23/18 08:48 Temperature Pulse Rate 89 Respiratory Rate Blood Pressure Blood Pressure [Left] O2 Sat by Pulse 99 Oximetry - Exam Breasts: deferred FHR: category 1 Uterine Contraction Monitor Mode: External - Labs Labs: Abnormal Labs 12/21/18 12:14 MCH 27 L Seg Neutrophils % 81.0 H Seg Neutrophils # 8.2 H Laboratory Results - last 24 hr 12/21/18 12:14 RPR Nonreactive
--- NOTE | 2018-12-23 10:50 | Event Note ---
Date: 12/23/18 Diagnosis and plan of care discussed with patient and her family with her verbal consent. Questions were encouraged and answered, consents reviewed and signed, she voiced understanding and desires to proceed with c/s.
[2018-12-23] MEDS ORDERED: PHENERGAN PO PRN (11:05)
[2018-12-23] MEDS ORDERED: DILAUDID IV PRN ×2 (11:05)
[2018-12-23] MEDS ORDERED: ZOFRAN IV PRN (11:05)
[2018-12-23] MEDS ORDERED: PHENERGAN PR PRN (11:05)
[2018-12-23] MEDS ORDERED: NARCAN 0.4 MG/1 ML IV PRN ×2 (11:05→15:49)
--- NOTE | 2018-12-23 11:05 | Anesthesia Day of Surgery ---
Anesthesia Day of Surgery - Day of Surgery Patient Examined: Yes Patient H&P Reviewed: Yes Patient is NPO: Yes
--- NOTE | 2018-12-23 11:05 | Anesthesia Consultation ---
Anesthesia Consult and Med Hx Date of service: 12/23/18 - Airway Anesthetic Teeth Evaluation: Good ROM Head & Neck: Adequate Mental/Hyoid Distance: Adequate Mallampati Class: Class II Intubation Access Assessment: Probably Good - Pulmonary Exam CTA: Yes - Cardiac Exam Cardiac Exam: RRR - Pre-Operative Health Status ASA Pre-Surgery Classification: ASA2 Proposed Anesthetic Plan: Spinal - Pulmonary Hx Asthma: No COPD: No Hx Pneumonia: No - Cardiovascular System Hx Hypertension: No - Central Nervous System Hx Seizures: No Hx Psychiatric Problems: No - Endocrine Hx Renal Disease: No Hx End Stage Renal Disease: No Hx Hypothyroidism: No - Hematic Hx Anemia: No Hx Sickle Cell Disease: No
[2018-12-23] MEDS ORDERED: NUBAIN IV PRN (11:06)
[2018-12-23] MEDS ORDERED: SODIUM CHLORIDE FLUSH SYRINGE 10 ML IV NR (12:00)
[2018-12-23] MEDS ORDERED: ZOFRAN ONE (12:11)
[2018-12-23] MEDS ORDERED: PHENYLEPHRINE/NS Syringe 1,000 MCG/10 ML IV ONE (12:11)
--- NOTE | 2018-12-23 12:57 | Post Anesthesia Evaluation ---
- Post Anesthesia Evaluation Patient Participated: Yes Airway Patent: Yes Stable Respiratory Function: Yes Nausea/Vomiting: No Temp > 96.8F: Yes Pain Manageable: Yes Adequeate Hydration: Yes Anesthesia Complications: No Block Receding Appropriately: Yes
--- NOTE | 2018-12-23 13:17 | Operative Report ---
Operative Report Operative Report: Date: 12/23/2018 Preoperative diagnosis: 1. Intrauterine at 36 weeks 2. Oligohydramnios 3. Suspicious vulvar lesion possible active herpetic outbreak Postoperative diagnosis: 1. Intrauterine at 36 weeks 2. Oligohydramnios 3. Suspicious vulvar lesion possible active herpetic outbreak Procedure: Low uterine transverse incision for delivery Surgeon: Dayna Yost MD Health Services Manager: Nichelle Leigh CNM Anesthesia: Epidural Anesthesiologist: Leisa Paige M.D. Estimated blood loss: 700 mL Urine out: 100 mL Findings: Live born male infant. Weight 5 lbs. 11 oz. Apgars 8 at 1 minute and 9 at 5 minutes. Uterus grossly normal, tubes grossly normal, ovaries grossly normal. Procedure: After risk, benefits, complications, consequences and alternatives for this procedure were discussed with patient and consents were reviewed and signed, she was taken to the OR where epidural anesthesia was placed. She was then placed in the left lateral tilt position, and prepped and draped in the usual sterile fashion. Timeout was performed, and an appropriate level of anesthesia was noted, a Pfannenstiel incision was made and extended to the fascia which was incised and extended in the lateral directions. The overlying fascia was sharply dissected away from the underlying rectus muscles in the superior and inferior directions. The midline was entered bluntly. The vesicouterine fold was incised and with blunt dissection the bladder flap was created. A transverse incision was made in the lower uterine segment and extended in superiolateral direction with finger fractionation. Scant clear fluid was noted. The was delivered from cephalic position. Mouth and nose were bulb suctioned. Spontaneous cry and excellent tone were noted. Cord was doubly clamped and cut. The was given to /resuscitation team present. The placenta was manually extracted. The uterus was then exteriorized and cleared of any further products of conception or placental tissue. The incision was reapproximated using 0 Vicryl in a running interlocking stitch. Grossly normal uterus, tubes and ovaries were noted. Once hemostasis was noted, the uterus was allowed back into the pelvic cavity. The pelvis was irrigated with warm normal saline. Again hemostasis was noted . Surgicel applied for further hemostasis. Interceed was then placed to prevent adhesions. Then attention was turned to the rectus muscles. The rectus muscles reapproximated using 0 Vicryl in a simple interrupted stitch x 4. Once hemostasis was noted, the fascia was reapproximated using 0 Vicryl running stitch fashion. Once hemostasis was noted skin incision was reapproximated using 4-0 Vicryl on a Franco needle in a subcuticular manner. Counts were correct 3. Patient tolerated procedure well state recovery room in stable condition.
[2018-12-23] MEDS ORDERED: TYLENOL PO SCH (14:00)
[2018-12-23] MEDS ORDERED: TUCKS PAD TP PRN (15:49)
[2018-12-23] MEDS ORDERED: MORPHINE IV PRN (15:49)
[2018-12-23] MEDS ORDERED: SODIUM CHLORIDE FLUSH SYRINGE 10 ML IV SCH (15:49)
[2018-12-23] MEDS ORDERED: LANSINOH TP PRN (15:49)
[2018-12-23] MEDS: TORADOL IV SCH ×2 (16:09→16:43)
[2018-12-23] MEDS: TYLENOL PO SCH (16:46)
[2018-12-23] MEDS ORDERED: D5LR 1,000 ML IV SCH (16:49)
[2018-12-23] MEDS: ANCEF/NS 1 GM/50 ML 1 GM/50 ML BAG IV SCH (17:35)
[2018-12-23] MEDS ORDERED: TORADOL IV SCH (18:00)
[2018-12-23] MEDS: MORPHINE IV PRN (21:06)
[2018-12-24] MEDS: TYLENOL PO SCH ×3 (00:11→11:17)
[2018-12-24] MEDS: TORADOL IV SCH ×2 (00:11→05:41)
[2018-12-24 00:41] LABS: Hematocrit 27.6 % (30.3-42.9); Hemoglobin 9.2 gm/dl (10.1-14.3)
[2018-12-24] MEDS: ANCEF/NS 1 GM/50 ML 1 GM/50 ML BAG IV SCH (01:30)
[2018-12-24] MEDS: MORPHINE IV PRN (03:58)
--- NOTE | 2018-12-24 10:35 | Progress Note ---
Assessment and Plan 28y/o postop day #1, pain well controlled. reports feeling some gas pains but not yet passing gas. VSSAF, H&H 9.2/27.6. Dressing dry and intact - rn to remove after shower this afternoon. Encouraged increase in activity as tolerated. - Patient Problems (1) delivery delivered Current Visit: Yes Status: Acute Plan to address problem: continue postop pathway (2) Anemia associated with acute blood loss Current Visit: Yes Status: Acute Plan to address problem: asymptomatic Continue PNV Encouraged FE rich foods Subjective - Subjective Date of service: 12/24/18 Principal diagnosis: Postop day #1 s/p primary c/s Patient reports: appetite normal, voiding normally, pain well controlled, ambulating normally, no dizzy ambulation, no flatus, no nauseated : doing well, bottle feeding Objective - Vital Signs Latest vital signs: Vital Signs Temp Pulse Resp BP BP Pulse Ox 12/24/18 09:05 98.2 F 72 20 127/75 12/24/18 06:11 16 12/24/18 05:41 18 12/24/18 05:40 18 12/24/18 04:28 18 12/24/18 04:23 98.2 F 85 20 109/76 97 12/24/18 03:58 18 12/24/18 01:11 18 12/24/18 00:41 18 12/24/18 00:26 98.5 F 73 20 111/70 98 12/24/18 00:11 18 12/23/18 21:36 18 12/23/18 21:06 18 12/23/18 20:07 99.4 F 83 20 114/80 99 12/23/18 16:25 98.2 F 80 18 109/68 12/23/18 14:25 98.2 F 83 18 101/72 99 12/23/18 14:00 98.3 F 82 16 118/78 100 12/23/18 13:40 70 15 117/76 100 12/23/18 13:25 62 16 106/62 99 12/23/18 13:10 78 20 95/59 99 12/23/18 13:05 68 17 102/59 99 12/23/18 13:00 80 16 100/50 99 12/23/18 12:55 97.8 F 88 16 97/49 99 12/23/18 11:32 96 H 114/61 Intake and Output 12/23/18 12/24/18 12/24/18 23:59 07:59 15:59 Intake Total 410 600 360 Output Total 500 1200 900 Balance -90 -600 -540 Intake: IV 50 ANCEF/NS 1 GM/50 ML 1 gm 50 In 50 ml @ 100 mls/hr IV Q8H [facility] Rx#:[id number] Oral 360 360 360 Intake, Free Water 240 Output: Urine 500 1200 900 Indwelling Catheter 500 800 Void 400 900 Other: Total, Intake Amount 240 360 360 Total, Output Amount 200 400 900 # Voids Indwelling Catheter 1 - Exam Breasts: Present: normal Cardiovascular: Present: Regular rate Lungs: Present: Clear to auscultation, Normal air movement Abdomen: Present: normal appearance, soft. Absent: distention, tenderness, guarding Uterus: Present: normal, firm, fundal height at umbilicus Extremities: Present: normal Deep Tendon Reflex Grade: Normal +2 Incision: Present: normal, dry, dressed - Labs Labs: Abnormal lab results 12/24/18 Range/Units 00:27 Hgb 9.2 L (10.1-14.3) gm/dl Hct 27.6 L (30.3-42.9) %
[2018-12-24] MEDS: IBUPROFEN PO PRN ×2 (11:16→18:10)
[2018-12-24] MEDS ORDERED: BOOSTRIX IM ONE ×2 (12:53→19:30)
[2018-12-24] MEDS: MYLICON PO PRN ×2 (12:55→18:10)
[2018-12-24] MEDS: PERCOCET 5/325 PO PRN ×2 (15:16→21:48)
[2018-12-25] MEDS: PERCOCET 5/325 PO PRN ×3 (04:21→19:20)
[2018-12-25] MEDS: IBUPROFEN PO PRN ×2 (04:21→13:45)
--- NOTE | 2018-12-25 07:10 | Progress Note ---
Assessment and Plan - Patient Problems (1) delivery delivered Onset Date: ~12/23/18 Current Visit: Yes Status: Acute Plan to address problem: pt A&O X 3 No c/o voiced VSS FF below umb Lochia small Dressing D&I to be removed this AM H&H stable Asymptomatic anemia Doing well s/p c/s P: continue pathway Advance as tolerated Plan d/c for tomorrow (2) Lesion of vulva Onset Date: ~12/25/18 Current Visit: Yes Status: Acute Plan to address problem: results pending for lab and cultures Subjective - Subjective Date of service: 12/25/18 (no c/o voiced; desires d/c tomorrow) Principal diagnosis: Postop day #2 s/p primary c/s Interval history: HBsAg Screen Negative Negative *1 RPR Non Reactive Non Reactive *2 Rubella Antibodies, IgG 3.73 index Immune >0.99 *3 Non-immune <0.90 Equivocal 0.90 - 0.99 Immune >0.99 ABO Grouping B *4 Rh Factor Positive *5 Please note: Prior records for this patient's ABO / Rh type are not available for additional verification. Antibody Screen Negative Negative *6 WBC 10.1 x10E3/uL 3.4-10.8 *7 RBC 4.11 x10E6/uL 3.77-5.28 *8 Hemoglobin 11.2 g/dL 11.1-15.9 *9 Hematocrit 34.9 % 34.0-46.6 *10 MCV 85 fL 79-97 *11 MCH 27.3 pg 26.6-33.0 *12 MCHC 32.1 g/dL 31.5-35.7 *13 RDW 12.9 % 12.3-15.4 *14 Platelets 325 x10E3/uL 150-379 *15 Neutrophils 71 % Not Estab. *16 Lymphs 21 % Not Estab. *17 Monocytes 7 % Not Estab. *18 Eos 1 % Not Estab. *19 Basos 0 % Not Estab. *20 ! Immature Cells <No Reported Value> *21 Neutrophils (Absolute) [H] 7.1 x10E3/uL 1.4-7.0 *22 Lymphs (Absolute) 2.1 x10E3/uL 0.7-3.1 *23 Monocytes(Absolute) 0.7 x10E3/uL 0.1-0.9 *24 Eos (Absolute) 0.1 x10E3/uL 0.0-0.4 *25 Baso (Absolute) 0.0 x10E3/uL 0.0-0.2 *26 ! Immature Granulocytes 0 % Not Estab. *27 ! Immature Grans (Abs) 0.0 x10E3/uL 0.0-0.1 *28 ! NRBC <No Reported Value> *29 Hematology Comments: <No Reported Value> *30 Tests: (2) Panel 955103 ([id number]) HIV Screen 4th Generation wRfx Non Reactive Non Reactive *31 Tests: (3) HCV Ab w/Rflx to Verification (952554) ! HCV Ab <0.1 s/co ratio 0.0-0.9 *32 Tests: (4) Comment: ([id number]) ! Comment: [facility] *33 Non reactive HCV antibody screen is consistent with no HCV infection, unless recent infection is suspected or other evidence exists to indicate HCV infection. Tests: (5) Urine Culture, Routine ([id number]) Urine Culture, Routine Final report *34 Tests: (6) Result ([id number]) ! Result 1 No growth *35 Patient reports: appetite normal, voiding normally, pain well controlled, ambulating normally [place]: doing well Objective - Vital Signs Latest vital signs: Vital Signs Temp Pulse Resp BP Pulse Ox 12/25/18 05:21 18 12/25/18 04:21 18 12/24/18 23:51 97.3 F L 78 16 103/62 96 12/24/18 22:48 18 12/24/18 21:48 18 12/24/18 19:10 18 12/24/18 15:45 98.2 F 69 20 103/66 12/24/18 09:05 98.2 F 72 20 127/75 Intake and Output 12/24/18 12/25/18 12/25/18 22:59 06:59 14:59 Intake Total 360 360 Balance 360 360 Intake: Oral 360 360 Other: Total, Intake Amount 240 120 # Voids Indwelling Catheter 2 Void 1 1 - Exam Breasts: Present: normal Cardiovascular: Present: Regular rate Lungs: Present: Normal air movement Abdomen: Present: normal appearance, soft, normal bowel sounds Uterus: Present: normal, fundal height below umbilicus Extremities: Present: normal Deep Tendon Reflex Grade: Normal +2 Incision: Present: normal, dry, intact, dressed (must be removed this AM)
[2018-12-26] MEDS: IBUPROFEN PO PRN ×3 (00:50→17:03)
--- NOTE | 2018-12-26 07:48 | Discharge Summary ---
Providers - Providers Date of Admission: 12/20/18 23:38 Date of discharge: 12/26/18 (pt agrees with dc home today) Attending physician: LATONIA MORALES 12/23/18 15:49 Consult to Development Officer [CONS] Routine Reason For Exam: Primary care physician: NAOMI SHEIKH Hospitalization Reason for admission: Labor, oligohydramnios Condition: Good Pertinent studies: postop H&H 9.2/27.6, asymptomatic anemia from acute blood loss. Procedures: primary c/s Hospital course: uncompliacted primary c/s and course Disposition: DC-01 TO HOME OR SELFCARE - Discharge Diagnoses (1) delivery delivered Status: Acute (2) Anemia associated with acute blood loss Status: Acute Core Measure Documentation - Palliative Care Palliative Care/ Comfort Measures: Not Applicable - Core Measures Any of the following diagnoses?: none Exam - Constitutional Vitals: Temp Pulse Resp BP Pulse Ox 98.9 F 85 20 110/64 98 12/25/18 23:49 12/25/18 23:49 12/25/18 23:49 12/25/18 23:49 12/25/18 23:49 General appearance: Present: no acute distress, well-nourished - EENT Eyes: Present: PERRL ENT: hearing intact, clear oral mucosa - Neck Neck: Present: supple, normal ROM - Respiratory Respiratory effort: normal Respiratory: bilateral: CTA - Cardiovascular Heart Sounds: Present: S1 & S2. Absent: rub, click - Extremities Extremities: pulses symmetrical, No edema Peripheral Pulses: within normal limits - Abdominal General gastrointestinal: Present: soft, non-tender, non-distended, normal bowel sounds Female genitourinary: Present: normal - Integumentary Integumentary: Present: clear, warm, dry - Musculoskeletal Musculoskeletal: gait normal, strength equal bilaterally - Psychiatric Psychiatric: appropriate mood/affect, intact judgment & insight - Neurologic Neurologic: CNII-XII intact, moves all extremities - Additional findings Additional findings: incision d&I, fundus firm, lochia scant Plan Activity: no restrictions Diet: regular Wound: open to air, keep clean and dry Follow up with: NAOMI SHEIKH MD [Primary Care Provider] - 7 Days (Congratulations! Please call [phone] to schedule your incision check and son's circumcision in 1 week. Bring EMLA cream to your son's appointment and await instuctions. Call for any questions or concerns.) Prescriptions: Lidocain2.5%/Prilocai2.5% [Emla] 5 gm TP ONCE #1 tube Ibuprofen [Motrin 800 MG tab] 800 mg PO TID PRN #30 tablet PRN Reason: Pain oxyCODONE /ACETAMINOPHEN [Percocet 5/325 mg] 1 - 2 tab PO Q4HR PRN #20 tablet PRN Reason: Pain
[2018-12-26] MEDS: PERCOCET 5/325 PO PRN ×2 (09:53→17:03)
[2018-12-27] MEDS: PERCOCET 5/325 PO PRN (01:09)
[2018-12-27] MEDS: IBUPROFEN PO PRN (05:06)
[2018-12-27 09:13] VITALS: BP 120/79
== END 2018-12-27 09:50 | disposition home or self-care (01) | DRG 787 ==
LOC: TRG 17:38 → LD 23:38 → OBSVTOIN 23:38 → LD 12-21 01:21 → OB 12-23 15:03
PROVIDERS: ADMIT Obstetrics & Gynecology; ATTEND Obstetrics & Gynecology
PROC: 10D00Z1 Extraction of Products of Conception, Low, Open Approach (ICD-10-PCS; principal; 2018-12-23)
DX: O76 Abnormality in fetal heart rate and rhythm complicating labor and delivery (principal); O41.03X0 Oligohydramnios, third trimester, not applicable or unspecified; D62 Acute posthemorrhagic anemia; O99.02 Anemia complicating childbirth; O34.73 Maternal care for abnormality of vulva and perineum, third trimester; Z37.0 Single live birth; Z3A.36 36 weeks gestation of pregnancy
CPT/HCPCS: 36415; 59025; 76815; 76819; 81001; 85014; 85018; 85025; 86592; 86850; 86900; 86901; 88305; 88307; 90471; 90715; G0378; C1765; J0290; J0690; J0702; J1885; J2270; J2370; J2405; J2590; J2765; J3105; J7120; J7121

== ENCOUNTER 2019-05-04 15:47 | Emergency (ER) | payer OTHER ==
[2019-05-04 16:34] VITALS: BP 115/71
--- NOTE | 2019-05-04 17:00 | Event Note ---
ED Screening Note Date of service: 05/04/19 ED Screening Note: This initial assessment/diagnostic orders/clinical plan/treatment(s) is/are subject to change based on patients health status, clinical progression and re- assessment by fellow clinical providers in the ED. Further treatment and workup at subsequent clinical providers discretion. Patient/guardian urged not to elope from the ED as their condition may be serious if not clinically assessed and managed. Initial orders include: 28yo BF states that she was diagnosed with wrist tendonitis by her PCP but her pain is still present and she would like an MRI. Pt states that she was given steroids, a wrist immobilzer and NSAIDs.
== END 2019-05-04 16:37 | disposition left against medical advice (07) ==
LOC: ED 15:47
DX: M25.532 Pain in left wrist (principal); Z53.21 Procedure and treatment not carried out due to patient leaving prior to being seen by health care provider